=== PATIENT | female | born 1985 | race Caucasian/White ===

== ENCOUNTER 2023-10-19 12:41 | Emergency (ER) | payer MEDICAID, SELFPAY ==
[2023-10-19 12:42] VITALS: BP 115/84; PULSE 79; RESP 16; TEMP 36.9; O2SAT 98; BMI 22.3
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
[2023-10-19] MEDS: 0.9% Normal Saline (1000mL) 1,000 ML 999 ML IV (14:31)
[2023-10-19] MEDS: Ketorolac 15 MG/ML Vial IV (14:31)
[2023-10-19] MEDS: dexAMETHasone 4 MG/ML Vial IV (14:31)
[2023-10-19] MEDS: Metoclopramide 10 MG/2 ML Vial 5 MG IV (14:32)
[2023-10-19 14:41] VITALS: BP 110/77; PULSE 74; RESP 16; O2SAT 95
[2023-10-19] MEDS: Acetaminophen 325 MG Tablet 650 MG PO (14:43)
--- NOTE | 2023-10-19 14:59 | CT_ITS ---
STUDY: CT CERVICAL SPINE WITHOUT CONTRAST REASON FOR EXAM: Female, 38 years old. Neck pain RADIATION DOSAGE (If Supplied By Facility): CTDIvol = ( 17.11 ) mGy, DLP = ( 346.71 ) mGycm TECHNIQUE: High resolution transaxial imaging was performed without contrast material. Sagittal and coronal images were reconstructed. Individualized dose optimization techniques were used for this CT. COMPARISON: None FINDINGS: Normal craniovertebral junction. Normal anterior atlantoaxial articulation. Normal odontoid process. Normal cervical lordosis. Normal vertebral bodies and posterior osseous elements. C2-3: Normal endplates. Normal disc height and morphology. Normal central canal and intervertebral neuroforamina. C3-4: Normal endplates. Normal disc height and morphology. Normal central canal and intervertebral neuroforamina. C4-5: Normal endplates. Normal disc height and morphology. Normal central canal and intervertebral neuroforamina. C5-6: Normal endplates. Normal disc height and morphology. Normal central canal and intervertebral neuroforamina. C6-7: Normal endplates. Normal disc height and morphology. Normal central canal and intervertebral neuroforamina. C7-T1: Normal endplates. Normal disc height and morphology. Normal central canal and intervertebral neuroforamina. Normal visualized soft tissue structures. CT/Spine Cervical without Contras IMPRESSION: Normal unenhanced CT examination of the cervical spine. Electronically Signed: Connor Durant MD at 15:38 EDT ,
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
[2023-10-19 16:00] VITALS: BP 114/84; PULSE 77; RESP 14; O2SAT 96
[2023-10-19 16:36] VITALS: BP 114/84; PULSE 77; RESP 14; TEMP 36.7; O2SAT 96
== END 2023-10-19 16:37 | disposition home or self-care (01) ==
PROVIDERS: Emergency Provider Emergency Medicine; PCP Psychiatry & Neurology Neurology; Visit Provider Emergency Medicine
DX: G43.709 Chronic migraine without aura, not intractable, without status migrainosus (principal); R51.9 Headache, unspecified; Z90.49 Acquired absence of other specified parts of digestive tract; Z98.51 Tubal ligation status
CPT/HCPCS: 70450; 72125; 96361; 96374; 96375; 99282; J7030; A4216